=== PATIENT | female | born 1965 | race African-American/Black ===

== ENCOUNTER 2018-11-06 09:48 | Inpatient (IN) | payer MEDICARE, OTHER ==
[~2018-11-06] VITALS: Ht 165.1 cm; Wt 69.4 kg
[~2018-11-06 09:48] MED LIST: ASPI81 PO; DIVA-78 PO; HCTZ; LISI-660 PO; MYCO250C7 PO
[2018-11-06] MEDS ORDERED: MYCO250C7 PO (10:03)
[2018-11-06] MEDS ORDERED: AMLO10TA7 PO (10:03)
[2018-11-06] MEDS ORDERED: PRED5 PO (10:03)
[2018-11-06] MEDS ORDERED: ALBUTEROL SULFATE 2.5 MG/0.5 ML NEB SOLUTION NEB ONE ×2 (10:15→10:40)
[2018-11-06] MEDS ORDERED: OXYGEN THERAPY IH SCH (10:15)
[2018-11-06] MEDS ORDERED: MethylPREDNISolone SOD SUCC 125 MG/2 ML VIAL IVP ONE (10:15)
[2018-11-06] MEDS ORDERED: IPRATROPIUM BROMIDE 0.5 MG/2.5 ML NEB SOLUTION NEB ONE ×3 (10:15→11:45)
[2018-11-06 10:43] LABS: BASOPHILS % (AUTO) 1.3 % (0.0-2.0); EOSINOPHILS % (AUTO) 0.3 % (1.0-6.0); HEMATOCRIT 39.3 % (36-46); HEMOGLOBIN 12.8 g/dL (12.0-16.0); LYMPHOCYTES % (AUTO) 13.9 % (22.0-44.0); MEAN CORPUSCULAR HEMOGLOBIN 29.4 pg (26.0-34.0); MEAN CORPUSCULAR HGB CONC 32.6 G/dL (31.0-37.0); MEAN CORPUSCULAR VOLUME 90 fL (80-100); MONOCYTES # (AUTO) 0.7 K/uL (0.1-1.0); MONOCYTES % (AUTO) 3.4 % (2.0-9.0); NEUTROPHILS # (AUTO) 17.4 K/uL (1.8-7.7); NEUTROPHILS % (AUTO) 81.1 % (40.0-70.0); PLATELET COUNT (AUTO) 284 K/uL (150-450); RED BLOOD CELL COUNT(AUTO) 4.35 MIL/uL (4.00-5.20); RED CELL DISTRIBUTION WIDTH 17.8 % (11.5-14.5)
[2018-11-06] MEDS ORDERED: CefTRIAXone 1 GM/DEXTROSE 50 ML IV ONE (11:00)
[2018-11-06] MEDS ORDERED: AZITHROMYCIN 500 MG/NS 250 ML IV ONE (11:00)
[2018-11-06 11:03] LABS: B-TYPE NATRIURETIC PEPTIDE 42 pg/mL (0-100)
[2018-11-06 11:06] LABS: LACTIC ACID 2.7 mmol/L (0.4-2.0)
[2018-11-06 11:08] LABS: ALANINE AMINOTRANSFERASE 19 U/L (12-78); ALBUMIN 3.4 g/dL (3.4-5.0); ALKALINE PHOSPHATASE 72 U/L (46-116); ANION GAP 15 mmol/L (8-16); ASPARTATE AMINOTRANSFERASE 24 U/L (15-37); BILIRUBIN,TOTAL 0.2 mg/dL (0.1-1.0); CARBON DIOXIDE 18 mmol/L (22-29); CHLORIDE 105 mmol/L (98-107); CREATININE 0.93 mg/dL (0.60-1.30); GLOMERULAR FILTR. RATE CALC > 60 mL/min (>60); GLUCOSE,RANDOM 144 mg/dL (70-110); LIPASE 207 U/L (73-393); SODIUM SERUM 138 mmol/L (136-145); TOTAL PROTEIN, SERUM 7.6 g/dL (6.4-8.2); UREA NITROGEN, BLOOD 15 mg/dL (7-18)
[2018-11-06 11:10] LABS: POTASSIUM 2.9 mmol/L (3.5-5.1)
[2018-11-06] MEDS ORDERED: ALBUTEROL SULFATE 5 MG/ML 20 ML NEB SOLN [BULK] NEB ONE (11:45)
[2018-11-06] MEDS ORDERED: ONDANSETRON HCL 4 MG/2 ML VIAL IVP ONE (11:45)
[2018-11-06] MEDS ORDERED: MORPHINE SULFATE 2 MG/ML SYRINGE IVP ONE (11:45)
[2018-11-06] MEDS ORDERED: MORPHINE SULFATE 4 MG/ML SYRINGE IVP ONE (11:45)
[2018-11-06] MEDS ORDERED: IOVERSOL 350 MG/ML 100 ML VIAL ONE (11:47)
[2018-11-06] MEDS ORDERED: SODIUM CHLORIDE 0.9% 100 ML ONE (11:47)
[2018-11-06 11:59] LABS: ABG METHEMOGLOBIN 0.3 % (0.0-1.5); ABG TOTAL HEMOGLOBIN 12.4 G/dL (12.0-18.0); SOURCE, BLOOD GAS ARTERIAL; TEMPERATURE, FAHRENHEIT, BG 98.6 FAHREN (96.0-98.6)
[2018-11-06] MEDS ORDERED: POTASSIUM CHL 10 MEQ/WATER 50 ML IV ONE (12:00)
[2018-11-06 12:05] LABS: ABG BASE EXCESS -7.7 mmol/L (-2.0-3.0); ABG CARBOXYHEMOGLOBIN 1.4 % (0.0-1.5); ABG HCO3 18.9 mmol/L (22.0-26.0); ABG OXYGEN CONTENT 15.9 mL/dL (15.0-23.0); ABG OXYGEN SATURATION 92.4 % (95.0-98.0); ABG OXYHEMOGLOBIN 90.8 % (94.0-100.0); ABG PCO2 33 mmHg (35-45); ABG PH 7.353 (7.35-7.450); SITE, BLOOD GAS RA
[2018-11-06 12:06] LABS: O2 DEVICE,BLOOD GAS NC (ROOM AIR)
[2018-11-06 12:10] LABS: INR 0.9 (0.9-1.1); PROTHROMBIN TIME 9.7 SEC (9.4-11.6)
[2018-11-06 12:28] LABS: INFLUENZA TYPE A NEGATIVE FOR TYPE A (NEGATIVE); INFLUENZA TYPE B NEGATIVE FOR TYPE B (NEGATIVE)
[2018-11-06] MEDS ORDERED: SODIUM CHLORIDE 0.9% 1,000 ML IV ONE (12:49)
[2018-11-06] MEDS ORDERED: PIPERACILLIN/TAZO 3.375 GM/D5W 50 ML IV SCH ×2 (13:45→17:00)
[2018-11-06 13:48] LABS: APPEARANCE,URINE CLEAR (CLEAR); BILIRUBIN,URINE NEGATIVE (NEGATIVE); GLUCOSE, URINE (UA) NEGATIVE (NEGATIVE); KETONES,URINE NEGATIVE (NEGATIVE); LEUKOCYTE ESTERASE ,URINE SMALL (NEGATIVE); NITRATE,URINE NEGATIVE (NEGATIVE); OCCULT BLOOD,URINE NEGATIVE (NEGATIVE); PROTEIN,URINE SEE CONFIRM (NEGATIVE); UROBILINOGEN,URINE 0.2 mg/dL (<=1.0)
[2018-11-06 13:49] LABS: AMPHET/METH SCREEN,URINE NEGATIVE (NEGATIVE); BARBITURATE SCREEN, URINE NEGATIVE (NEGATIVE); BENZODIAZEPINES SCREEN,URINE NEGATIVE (NEGATIVE); CANNABINOID SCREEN,URINE POSITIVE (NEGATIVE); COCAINE SCREEN,URINE POSITIVE (NEGATIVE); METHADONE SCREEN, URINE NEGATIVE (NEGATIVE); OPIATE SCREEN,URINE POSITIVE (NEGATIVE)
[2018-11-06 13:50] LABS: PHENCYCLIDINE SCREEN,URINE NEGATIVE (NEGATIVE)
[2018-11-06] MEDS ORDERED: IPRATROPIUM BROMIDE 0.5 MG/2.5 ML NEB SOLUTION NEB PRN (14:15)
[2018-11-06] MEDS ORDERED: BISACODYL 10 MG RECTAL RECTAL SUPPOSITORY PR PRN (14:15)
[2018-11-06] MEDS ORDERED: MAGNESIUM HYDROXIDE SUSPENSION 30 ML UDCUP PO PRN (14:15)
[2018-11-06] MEDS ORDERED: ALBUTEROL SULFATE 2.5 MG/0.5 ML NEB SOLUTION NEB PRN (14:15)
[2018-11-06] MEDS ORDERED: ONDANSETRON HCL 4 MG/2 ML VIAL IVP PRN (14:15)
[2018-11-06] MEDS ORDERED: ACETAMINOPHEN 325 MG TABLET PO PRN (14:15)
[2018-11-06] MEDS: ASPIRIN 81 MG CHEWABLE TABLET PO SCH (14:16)
[2018-11-06] MEDS: SODIUM CHLORIDE 0.9% 1,000 ML IV SCH (14:17)
[2018-11-06] MEDS: PANTOPRAZOLE SODIUM 40 MG DR TABLET PO SCH (14:19)
[2018-11-06] MEDS ORDERED: VANCOMYCIN HCL 1 GM/D5% WATER 200 ML IV ONE ×2 (15:00→23:59)
[2018-11-06 15:29] LABS: SULFOSALICYLIC ACID,URINE 4+ (Negative)
[2018-11-06 15:31] LABS: RBC,URINE 0-2 /HPF (0-2)
[2018-11-06 15:32] LABS: AMORPHOUS SEDIMENT,UR Few /LPF (None Seen); BACTERIA,URINE Few /HPF (None Seen); SQUAMOUS EPITHELIAL CELL,UR Moderate /LPF (None Seen)
[2018-11-06] MEDS: DIVALPROEX SODIUM 500 MG DR TABLET PO SCH ×2 (15:32→22:24)
[2018-11-06] MEDS ORDERED: *CLINICAL-BACTRIM/SEPTRA IVPB DOSING CLINICAL ONE (16:30)
[2018-11-06] MEDS ORDERED: FentaNYL CITRATE-PF 100 MCG/2 ML VIAL IVP ONE (16:45)
[2018-11-06] MEDS ORDERED: LORazepam 2 MG/ML VIAL IVP ONE (16:45)
[2018-11-06 17:07] LABS: ABG A-A DIFF O2 143.9 mmHg (10-20.0); ABG BASE EXCESS -12.9 mmol/L (-2.0-3.0); ABG CARBOXYHEMOGLOBIN 0.7 % (0.0-1.5); ABG HCO3 15.3 mmol/L (22.0-26.0); ABG METHEMOGLOBIN 0.3 % (0.0-1.5); ABG OXYGEN CONTENT 16.8 mL/dL (15.0-23.0); ABG OXYGEN SATURATION 99.2 % (95.0-98.0); ABG OXYHEMOGLOBIN 98.2 % (94.0-100.0); ABG PCO2 32 mmHg (35-45); ABG TOTAL HEMOGLOBIN 11.9 G/dL (12.0-18.0); PO2, ARTERIAL BG 176.4 mmHg (84.0-92.0); SITE, BLOOD GAS RA; SOURCE, BLOOD GAS ARTERIAL; TEMPERATURE, FAHRENHEIT, BG 98.6 FAHREN (96.0-98.6)
[2018-11-06 17:09] LABS: O2 DEVICE,BLOOD GAS BIPAP (ROOM AIR)
[2018-11-06] MEDS ORDERED: RAPID SEQUENCE KIT [RSI] 1 EACH KIT ONE (17:26)
[2018-11-06] MEDS ORDERED: SUCCINYLCHOLINE CHLORIDE 20 MG/ML 10 ML VIAL ONE (17:26)
[2018-11-06] MEDS: SULFAMETHOX IV SCH (17:30)
[2018-11-06] MEDS: DEXTROSE IV SCH (17:30)
[2018-11-06] MEDS: TRIMETH IV SCH (17:30)
[2018-11-06] MEDS: WATER IV SCH (17:30)
[2018-11-06] MEDS ORDERED: PROPOFOL 1000 MG/ISO-OSM 100 ML IV ONE (17:41)
[2018-11-06] MEDS: PROPOFOL 1000 MG/ISO-OSM 100 ML IV PRN ×2 (17:51→21:21)
[2018-11-06] MEDS ORDERED: VECURONIUM BROMIDE 10 MG/VIAL ONE (17:53)
[2018-11-06] MEDS ORDERED: ETOMIDATE 2 MG/ML 10 ML VIAL ONE (17:53)
[2018-11-06] MEDS: IPRATROPIUM BROMIDE 0.5 MG/2.5 ML NEB SOLUTION NEB SCH ×2 (18:00→20:04)
[2018-11-06] MEDS: ALBUTEROL SULFATE 2.5 MG/0.5 ML NEB SOLUTION NEB SCH ×2 (18:00→20:04)
[2018-11-06] MEDS: MethylPREDNISolone SOD SUCC 125 MG/2 ML VIAL IVP SCH (18:57)
[2018-11-06] MEDS ORDERED: ETOMIDATE 2 MG/ML 10 ML VIAL IVP ONE (19:00)
[2018-11-06] MEDS ORDERED: VECURONIUM BROMIDE 10 MG/VIAL IVP ONE (19:00)
[2018-11-06] MEDS ORDERED: MIDAZOLAM HCL 5 MG/ML VIAL IVP ONE (19:15)
[2018-11-06 20:36] LABS: ABG A-A DIFF O2 204.4 mmHg (10-20.0); ABG BASE EXCESS -15.5 mmol/L (-2.0-3.0); ABG CARBOXYHEMOGLOBIN 0.7 % (0.0-1.5); ABG HCO3 13.3 mmol/L (22.0-26.0); ABG METHEMOGLOBIN 0.3 % (0.0-1.5); ABG OXYGEN CONTENT 16.7 mL/dL (15.0-23.0); ABG PCO2 39 mmHg (35-45); ABG TOTAL HEMOGLOBIN 12.3 G/dL (12.0-18.0); TEMPERATURE, FAHRENHEIT, BG 99.5 FAHREN (96.0-98.6)
[2018-11-06 20:38] LABS: ABG PH 7.154 (7.35-7.450)
[2018-11-06 20:39] LABS: O2 DEVICE,BLOOD GAS VENTILATOR (ROOM AIR); PEEP,BG 5 cm H2O; SITE, BLOOD GAS RT BRACHIAL; SOURCE, BLOOD GAS ART; VT, ABG 450 ml
[2018-11-06 20:40] LABS: SPONTANEOUS VT, BG 455 ml
[2018-11-06] MEDS ORDERED: SODIUM BICARBONATE [ADULT] 8.4% 50 MEQ/50 ML SYRINGE IVP ONE (22:15)
[2018-11-06] MEDS: DOCUSATE SODIUM 100 MG CAPSULE PO SCH (22:24)
[2018-11-06] MEDS: LISINOPRIL 5 MG TABLET PO SCH (22:24)
[2018-11-06] MEDS: MYCOPHENOLATE MOFETIL 250 MG CAPSULE PO SCH (22:25)
[2018-11-06] MEDS: CefTRIAXone SODIUM 2 GM in DEXTROSE 5%-WATER 50 ML IV SCH (22:26)
[2018-11-06] MEDS: SODIUM BICARBONATE 150 MEQ in DEXTROSE 5%-WATER 1,000 ML IV SCH (23:15)
[2018-11-06] MEDS ORDERED: SODIUM CHLORIDE 0.9% 250 ML IV ONE (23:32)
[2018-11-06] MEDS: LEVOFLOXACIN 750 MG/D5% WATER 150 ML IV SCH (23:44)
[2018-11-07 00:12] VITALS: BP 143/76
[2018-11-07] MEDS: SODIUM CHLORIDE 0.9% 1,000 ML IV SCH (01:46)
[2018-11-07] MEDS: PROPOFOL 1000 MG/ISO-OSM 100 ML IV PRN ×3 (01:50→21:27)
[2018-11-07] MEDS: SULFAMETHOX IV SCH ×3 (01:59→17:08)
[2018-11-07] MEDS: TRIMETH IV SCH ×3 (01:59→17:08)
[2018-11-07] MEDS: DEXTROSE IV SCH ×3 (01:59→17:08)
[2018-11-07] MEDS: WATER IV SCH ×3 (01:59→17:08)
[2018-11-07] MEDS: MethylPREDNISolone SOD SUCC 125 MG/2 ML VIAL IVP SCH ×5 (02:00→23:34)
[2018-11-07] MEDS: IPRATROPIUM BROMIDE 0.5 MG/2.5 ML NEB SOLUTION NEB SCH ×4 (02:44→19:37)
[2018-11-07] MEDS: ALBUTEROL SULFATE 2.5 MG/0.5 ML NEB SOLUTION NEB SCH ×4 (02:44→19:37)
[2018-11-07] MEDS: MIDAZOLAM HCL 100 MG in DEXTROSE 5%-WATER 180 ML IV PRN ×2 (02:47→21:16)
[2018-11-07 03:49] LABS: HEMATOCRIT 31.9 % (36-46); HEMOGLOBIN 10.1 g/dL (12.0-16.0); MEAN CORPUSCULAR HEMOGLOBIN 29.1 pg (26.0-34.0); MEAN CORPUSCULAR HGB CONC 31.8 G/dL (31.0-37.0); MEAN CORPUSCULAR VOLUME 91 fL (80-100); PLATELET COUNT (AUTO) 229 K/uL (150-450); RED BLOOD CELL COUNT(AUTO) 3.49 MIL/uL (4.00-5.20); RED CELL DISTRIBUTION WIDTH 17.3 % (11.5-14.5)
[2018-11-07 04:00] VITALS: BP 98/55
[2018-11-07 04:11] LABS: BAND NEUTROPHILS % (MANUAL) 15 % (0-5); LYMPHOCYTES % (MANUAL) 6 % (22-44); MONOCYTES % (MANUAL) 2 % (2-9); SEGMENTED NEUTROPHILS % 77 % (40-70)
[2018-11-07 05:28] LABS: ALANINE AMINOTRANSFERASE 17 U/L (12-78); ALBUMIN 2.7 g/dL (3.4-5.0); ALKALINE PHOSPHATASE 52 U/L (46-116); ANION GAP 13 mmol/L (8-16); ASPARTATE AMINOTRANSFERASE 28 U/L (15-37); BILIRUBIN,TOTAL 0.2 mg/dL (0.1-1.0); CALCIUM, TOTAL 9.1 mg/dL (8.8-10.5); CARBON DIOXIDE 20 mmol/L (22-29); CHLORIDE 105 mmol/L (98-107); CHOL/HDL RATIO 5.1 (3.9-5.7); CHOLESTEROL 243 mg/dL (131-200); CREATININE 1.14 mg/dL (0.60-1.30); GLOMERULAR FILTR. RATE CALC > 60 mL/min (>60); GLUCOSE,RANDOM 131 mg/dL (70-110); HDL CHOLESTEROL 48 mg/dL (40-60); LDL CHOL (CALC.) 169 mg/dL (0-130); POTASSIUM 3.4 mmol/L (3.5-5.1); SODIUM SERUM 138 mmol/L (136-145); TOTAL PROTEIN, SERUM 6.7 g/dL (6.4-8.2); TRIGLYCERIDES 130 mg/dL (15-150); UREA NITROGEN, BLOOD 11 mg/dL (7-18)
[2018-11-07 08:00] VITALS: BP 131/69
[2018-11-07] MEDS: AmLODIPine BESYLATE 10 MG TABLET PO SCH (09:00)
[2018-11-07] MEDS: PANTOPRAZOLE SODIUM 40 MG DR TABLET PO SCH (09:27)
[2018-11-07] MEDS: MYCOPHENOLATE MOFETIL 250 MG CAPSULE PO SCH ×2 (09:27→21:00)
[2018-11-07] MEDS: LISINOPRIL 5 MG TABLET PO SCH ×2 (09:27→21:02)
[2018-11-07] MEDS: DIVALPROEX SODIUM 500 MG DR TABLET PO SCH ×3 (09:27→21:00)
[2018-11-07] MEDS: DOCUSATE SODIUM 100 MG CAPSULE PO SCH ×2 (09:27→21:00)
[2018-11-07] MEDS: VANCOMYCIN HCL 1 GM/D5% WATER 200 ML IV SCH ×2 (09:27→21:00)
[2018-11-07] MEDS: ASPIRIN 81 MG CHEWABLE TABLET PO SCH (09:27)
[2018-11-07] MEDS ORDERED: SODIUM CHLORIDE 0.9% 250 ML IV ONE (10:45)
[2018-11-07] MEDS ORDERED: AZITHROMYCIN 500 MG/NS 250 ML IV SCH (11:00)
[2018-11-07] MEDS: CefTRIAXone SODIUM 2 GM in DEXTROSE 5%-WATER 50 ML IV SCH ×2 (11:27→23:34)
[2018-11-07 11:43] LABS: ABG A-A DIFF O2 120.9 mmHg (10-20.0); ABG BASE EXCESS -5.9 mmol/L (-2.0-3.0); ABG CARBOXYHEMOGLOBIN 0.3 % (0.0-1.5); ABG HCO3 20.6 mmol/L (22.0-26.0); ABG METHEMOGLOBIN 0.3 % (0.0-1.5); ABG OXYGEN CONTENT 14.7 mL/dL (15.0-23.0); ABG OXYGEN SATURATION 98.6 % (95.0-98.0); ABG PCO2 26 mmHg (35-45); ABG PH 7.451 (7.35-7.450); ABG TOTAL HEMOGLOBIN 10.5 G/dL (12.0-18.0); O2 DEVICE,BLOOD GAS VENTILATOR (ROOM AIR); PEEP,BG 5 cm H2O; PO2, ARTERIAL BG 133.2 mmHg (84.0-92.0); SITE, BLOOD GAS LFT RADIAL; SOURCE, BLOOD GAS ARTERIAL; TEMPERATURE, FAHRENHEIT, BG 99.9 FAHREN (96.0-98.6); VT, ABG 450 ml
[2018-11-07 12:00] VITALS: BP 149/79
[2018-11-07] MEDS ORDERED: POTASSIUM CHL 10 MEQ/WATER 50 ML IV PRN (12:30)
[2018-11-07] MEDS ORDERED: POTASSIUM CHLORIDE 10% 40 MEQ/30 ML LIQUID UDCUP GT PRN ×2 (12:30)
[2018-11-07 16:00] VITALS: BP 142/74
[2018-11-07] MEDS: SODIUM BICARBONATE 150 MEQ in DEXTROSE 5%-WATER 1,000 ML IV SCH (16:59)
[2018-11-07 20:00] VITALS: BP 127/66
[2018-11-07] MEDS: LEVOFLOXACIN 750 MG/D5% WATER 150 ML IV SCH (23:34)
[2018-11-08] VITALS: BP 122/69
[2018-11-08] MEDS: TRIMETH IV SCH ×3 (01:16→17:04)
[2018-11-08] MEDS: SULFAMETHOX IV SCH ×3 (01:16→17:04)
[2018-11-08] MEDS: DEXTROSE IV SCH ×3 (01:16→17:04)
[2018-11-08] MEDS: WATER IV SCH ×3 (01:16→17:04)
[2018-11-08] MEDS: IPRATROPIUM BROMIDE 0.5 MG/2.5 ML NEB SOLUTION NEB SCH ×3 (01:28→14:37)
[2018-11-08] MEDS: ALBUTEROL SULFATE 2.5 MG/0.5 ML NEB SOLUTION NEB SCH ×3 (01:28→14:37)
[2018-11-08] MEDS: PROPOFOL 1000 MG/ISO-OSM 100 ML IV PRN ×6 (03:36→18:53)
[2018-11-08 04:00] VITALS: BP 99/56
[2018-11-08] MEDS: MethylPREDNISolone SOD SUCC 125 MG/2 ML VIAL IVP SCH ×3 (05:36→17:40)
[2018-11-08 05:44] LABS: ALANINE AMINOTRANSFERASE 22 U/L (12-78); ALBUMIN 2.7 g/dL (3.4-5.0); ALKALINE PHOSPHATASE 56 U/L (46-116); ANION GAP 12 mmol/L (8-16); ASPARTATE AMINOTRANSFERASE 49 U/L (15-37); BILIRUBIN,TOTAL 0.3 mg/dL (0.1-1.0); CARBON DIOXIDE 23 mmol/L (22-29); CHLORIDE 102 mmol/L (98-107); CREATININE 1.05 mg/dL (0.60-1.30); GLOMERULAR FILTR. RATE CALC > 60 mL/min (>60); GLUCOSE,RANDOM 144 mg/dL (70-110); POTASSIUM 4.4 mmol/L (3.5-5.1); SODIUM SERUM 137 mmol/L (136-145); TOTAL PROTEIN, SERUM 6.4 g/dL (6.4-8.2); UREA NITROGEN, BLOOD 14 mg/dL (7-18); VANCOMYCIN,RANDOM 22.2 mcg/mL (25.0-50.0)
[2018-11-08 08:00] VITALS: BP 136/86
[2018-11-08] MEDS: PANTOPRAZOLE SODIUM 40 MG DR TABLET PO SCH (09:00)
[2018-11-08] MEDS: MYCOPHENOLATE MOFETIL 250 MG CAPSULE PO SCH (09:00)
[2018-11-08 09:18] LABS: HEMATOCRIT 34.1 % (36-46); MEAN CORPUSCULAR HEMOGLOBIN 29.1 pg (26.0-34.0); MEAN CORPUSCULAR HGB CONC 32.1 G/dL (31.0-37.0); MEAN CORPUSCULAR VOLUME 90 fL (80-100); PLATELET COUNT (AUTO) 227 K/uL (150-450); RED BLOOD CELL COUNT(AUTO) 3.78 MIL/uL (4.00-5.20); RED CELL DISTRIBUTION WIDTH 17.7 % (11.5-14.5)
[2018-11-08 10:00] LABS: BAND NEUTROPHILS % (MANUAL) 13 % (0-5); LYMPHOCYTES % (MANUAL) 7 % (22-44); MONOCYTES % (MANUAL) 4 % (2-9); SEGMENTED NEUTROPHILS % 76 % (40-70)
[2018-11-08] MEDS: SODIUM BICARBONATE 150 MEQ in DEXTROSE 5%-WATER 1,000 ML IV SCH (10:26)
[2018-11-08] MEDS: AmLODIPine BESYLATE 10 MG TABLET PO SCH (10:26)
[2018-11-08] MEDS: DOCUSATE SODIUM 100 MG CAPSULE PO SCH (10:27)
[2018-11-08] MEDS: LISINOPRIL 5 MG TABLET PO SCH (10:27)
[2018-11-08] MEDS: ASPIRIN 81 MG CHEWABLE TABLET PO SCH (10:27)
[2018-11-08] MEDS: VANCOMYCIN HCL 1 GM/D5% WATER 200 ML IV SCH (10:28)
[2018-11-08] MEDS: MIDAZOLAM HCL 100 MG in DEXTROSE 5%-WATER 180 ML IV PRN (11:16)
[2018-11-08] MEDS ORDERED: CefTRIAXone SODIUM 2 GM in DEXTROSE 5%-WATER 50 ML IV SCH (11:30)
[2018-11-08 11:32] LABS: LEGIONELLA PNEUMO AG URINE Negative (Negative); ORGANISM ID Not indicated.; S PNEUMO SOURCE Urine; STREP PNEUMONIAE AG URINE Negative (Negative); STREP.PNEUMO BODY FLUID CULT. Not Indicated
[2018-11-08 12:00] VITALS: BP 123/75
[2018-11-08] MEDS ORDERED: HYDR25TA PO (12:49)
[2018-11-08] MEDS ORDERED: SODIUM CHLORIDE 0.9% 250 ML IV ONE (13:32)
[2018-11-08] MEDS: VALPROIC ACID 250 MG/5 ML SYRUP UDCUP PO SCH ×2 (14:27→15:50)
[2018-11-08] MEDS ORDERED: VANCOMYCIN HCL 750 MG in DEXTROSE 5%-WATER 250 ML IV SCH (15:00)
[2018-11-08 16:00] VITALS: BP 101/55
[2018-11-08] MEDS ORDERED: LIDOCAINE 4% 50 ML SOLUTION TP ONE (17:18)
[2018-11-08 18:53] VITALS: BP 111/53
== END 2018-11-08 19:30 | disposition short-term general hospital (02) | DRG 280 ==
LOC: EMS 09:57 → ICU 16:01
PROVIDERS: ADMIT Internal Medicine; ATTEND Internal Medicine
PROC: 5A1945Z Respiratory Ventilation, 24-96 Consecutive Hours (ICD-10-PCS; principal; 2018-11-06)
PROC: 0BH17EZ Insertion of Endotracheal Airway into Trachea, Via Natural or Artificial Opening (ICD-10-PCS; 2018-11-06)
PROC: 5A09357 Assistance with Respiratory Ventilation, Less than 24 Consecutive Hours, Continuous Positive Airway Pressure (ICD-10-PCS; 2018-11-06)
PROC: 0BD78ZX Extraction of Left Main Bronchus, Via Natural or Artificial Opening Endoscopic, Diagnostic (ICD-10-PCS; 2018-11-08)
DX: I21.4 Non-ST elevation (NSTEMI) myocardial infarction (principal); J18.1 Lobar pneumonia, unspecified organism; J96.01 Acute respiratory failure with hypoxia; E87.2 Acidosis; E87.6 Hypokalemia; D64.9 Anemia, unspecified; F17.200 Nicotine dependence, unspecified, uncomplicated; G40.909 Epilepsy, unspecified, not intractable, without status epilepticus; I10 Essential (primary) hypertension; F14.10 Cocaine abuse, uncomplicated; G43.909 Migraine, unspecified, not intractable, without status migrainosus; J40 Bronchitis, not specified as acute or chronic; M06.9 Rheumatoid arthritis, unspecified; Z90.710 Acquired absence of both cervix and uterus; Z91.19 Patient's noncompliance with other medical treatment and regimen
CPT/HCPCS: 31624; 36600; 70450; 71275; 80180; 82805; 83605; 83735; 84132; 84145; 85379; 86631; 86632; 86635; 86644; 86645; 86738; 87015; 87040; 87070; 87081; 87086; 87101; 87205; 87206; 87220; 87252; 87449; 87804; 87899; 88108; 88305; 88312; 93005; 93306; 94002; 94003; 94060; 94640; 94644; 94660; 96365; 96368; 96375; 99291; G0378; J0330; J0456; J0696; J1956; J2060; J2250; J2270; J2405; J2543; J2704; J2930; J3010; J3370; J3480; J3490; J7030; J7050; J7060; J7517